=== PATIENT | female | born 1940 | race Caucasian/White ===

== ENCOUNTER → 2018-03-23 | Outpatient (CLI) | payer MEDICARE, OTHER | END | disposition home or self-care (01) | LOC: ROC 03-14 11:05 | PROVIDERS: ATTEND Radiology Radiation Oncology | DX: Z08 Encounter for follow-up examination after completed treatment for malignant neoplasm (principal); D33.3 Benign neoplasm of cranial nerves | CPT/HCPCS: 77290; 77334; 77470; G0463 ==

== ENCOUNTER → 2018-10-06 | Outpatient (CLI) | payer MEDICARE, OTHER | END | disposition home or self-care (01) | LOC: ROC 07:42 | PROVIDERS: ATTEND Radiology Radiation Oncology | DX: Z08 Encounter for follow-up examination after completed treatment for malignant neoplasm (principal); D33.3 Benign neoplasm of cranial nerves; M19.90 Unspecified osteoarthritis, unspecified site; H91.92 Unspecified hearing loss, left ear | CPT/HCPCS: G0463 ==

== ENCOUNTER 2019-10-05 07:31 | Outpatient (CLI) | payer MEDICARE, OTHER | END 2019-10-05 23:59 | disposition home or self-care (01) | LOC: ROC 07:31 | PROVIDERS: ATTEND Radiology Radiation Oncology | DX: D36.10 Benign neoplasm of peripheral nerves and autonomic nervous system, unspecified (principal) | CPT/HCPCS: G0463 ==